=== PATIENT | male | born 1995 | race African-American/Black ===

== ENCOUNTER 2016-07-15 13:18 | Emergency (ER) | payer OTHER ==
[2016-07-15] MEDS ORDERED: IBUPROFEN 800 MG TABLET ONE (17:16)
[2016-07-15] MEDS ORDERED: CYCLOBENZAPRINE HCL 10 MG TABLET ONE (17:17)
== END 2016-07-15 19:52 | disposition home or self-care (01) ==
LOC: ER 13:18
DX: M25.512 Pain in left shoulder (principal); M54.5 Low back pain; V89.2XXA Person injured in unspecified motor-vehicle accident, traffic, initial encounter
CPT/HCPCS: 72110; 99283